=== PATIENT | female | born 1965 | race Hispanic/Latino ===

== ENCOUNTER 2019-04-08 14:46 | Observation (INO) | payer OTHER ==
[~2019-04-08] VITALS: Ht 162.6 cm; Wt 70.7 kg
[2019-04-08 15:58] LABS: BASOPHILS % (AUTO) 1.4 % (0.0-5.0); EOSINOPHILS % (AUTO) 1.9 % (0.0-8.0); HEMATOCRIT 43.1 % (36-48); MEAN CORPUSCULAR HEMOGLOBIN 30.4 pg (27.0-33.0); MEAN CORPUSCULAR HGB CONC 33.7 g/dL (32.0-36.0); MEAN CORPUSCULAR VOLUME 90.1 fL (79-99); NEUTROPHILS % (AUTO) 60.7 % (40.0-77.0); NUCLEATED RED BLOOD CELLS 0.1 % (0.0-0.19); PLATELET COUNT (AUTO) 316 K/uL (130-400); RED BLOOD CELL COUNT(AUTO) 4.79 MIL/uL (4.00-5.50); RED CELL DISTRIBUTION WIDTH 13.3 % (11.0-15.5); WHITE BLOOD COUNT (AUTO) 7.8 K/uL (4.8-10.8)
[2019-04-08 16:09] LABS: CREATININE 0.8 mg/dL (0.5-1.5); POTASSIUM 3.7 mmol/L (3.5-5.1)
[2019-04-08 16:24] LABS: ALBUMIN 4.2 g/dL (3.5-5.0); BILIRUBIN,TOTAL 0.3 mg/dL (0.2-1.0); TOTAL PROTEIN, SERUM 8.7 g/dL (6.0-8.3)
[2019-04-08 17:54] LABS: APPEARANCE,URINE Clear (CLEAR); BILIRUBIN,URINE Negative (NEGATIVE); COLOR,URINE Yellow (YELLOW); GLUCOSE, URINE (UA) Negative (NEGATIVE); KETONES,URINE Negative (NEGATIVE); LEUKOCYTE ESTERASE ,URINE Moderate (NEGATIVE); NITRATE,URINE Negative (NEGATIVE); OCCULT BLOOD,URINE Small (NEGATIVE); PROTEIN,URINE Negative (NEGATIVE); UROBILINOGEN,URINE 0.2 mg/dL (0.2-1.0)
[2019-04-08 17:59] LABS: AMPHET/METH SCREEN,URINE NEGATIVE (NEGATIVE); BARBITURATE SCREEN, URINE NEGATIVE (NEGATIVE); BENZODIAZEPINES SCREEN,URINE NEGATIVE (NEGATIVE); CANNABINOID SCREEN,URINE NEGATIVE (NEGATIVE); COCAINE SCREEN,URINE NEGATIVE (NEGATIVE); OPIATE SCREEN,URINE NEGATIVE (NEGATIVE); PHENCYCLIDINE SCREEN,URINE NEGATIVE (NEGATIVE)
[2019-04-08 18:09] LABS: INR 0.9 (0.85-1.15); PARTIAL THROMBOPLASTIN TIME 26.4 SEC (26.3-35.5); PROTHROMBIN TIME 9.4 SEC (9.6-11.6)
[2019-04-08 18:50] LABS: BACTERIA,URINE Few /HPF (None Seen); RBC,URINE 0-1 /HPF (0-1)
[2019-04-08] MEDS: SODIUM CHLORIDE 0.9% 1000ML 1,000 ML IV SCH (21:25)
[2019-04-08] MEDS ORDERED: LORAZEPAM 2 MG/ML 1 ML VIAL IM ONE (21:30)
[2019-04-08] MEDS ORDERED: IOHEXOL-350 75 ML VIAL IV ONE (21:56)
[2019-04-08 23:28] VITALS: BP 123/78
--- NOTE | 2019-04-08 23:50 | NUR ---
ADMIT PT ADMITTED TO ROOM 319,AAOX3. CLAIMS OF THROBBING PAIN ON LEFT SIDE OF HEAD, MOSTLY THE LEFT EYE AREA. ADMISSION CARE DONE. ADMISSION DATA BASE COMPLETED. CONTINUED IVF FROM ER OF NS REGULATED AT 100CC/HR. PLACED PT NPO ORDERED, PT INSTRUCTED. ORIENTED TO ROOM AND UNIT. TELE MONITOR REPORTS NSR WITH HR=80'S. IN FOR MORE CARE AND MANAGEMENT. INFORMED PT THAT HOSPITALIST WILL BE CALLED FOR PAIN MED. Addendum: 04/09/19 at 0058 by RACHAEL BAUMAN RN RN Amended: Links added.
--- NOTE | 2019-04-09 00:14 | NUR ---
CRIMINAL COURT JUDGE CALLED CRIMINAL COURT JUDGE BALLISTIC EXPERT FOR HOSPITALISTMERVAT. CLARIFIED ATIVAN ORDER. REFERRED PAIN OF PT. NEW MED ORDER FOR TYLENOL RECEIVED. WILL MEDICATE PT.
[2019-04-09] MEDS ORDERED: ACETAMINOPHEN 325 MG TAB PO PRN (00:15)
[2019-04-09] MEDS ORDERED: ACETAMINOPHEN 325 MG TAB ONE (00:16)
[2019-04-09] MEDS: CEFTRIAXONE SODIUM 1 GM IVP SCH (00:19)
--- NOTE | 2019-04-09 02:00 | NUR ---
ROUNDS PT RESTING WELL, FAIRLY ASLEEP. NO DISTRESS NOTED. KEPT UNDISTURBED FOR NOW. CALL LIGHT WITHIN REACH. WILL MONITOR PT.
[2019-04-09 04:49] VITALS: BP 118/65
--- NOTE | 2019-04-09 05:59 | NUR ---
CONSENT PT ALREADY AWAKE, CONVERSANT AND COHERENT. PT VERBALIZES THAT SHE DOES NOT HAVE ANY NUMBNESS NOR PAINS AT THIS TIME. PCP ASKED IF PT WANTS TO SHOWER AND PT AGREED. SALINE LOCKED PT FOR NOW. PCP IN TO ASSIST PT. FOR MORE CARE.
[2019-04-09 06:04] LABS: HEMATOCRIT 37.7 % (36-48); MEAN CORPUSCULAR HEMOGLOBIN 30.9 pg (27.0-33.0); MEAN CORPUSCULAR HGB CONC 33.8 g/dL (32.0-36.0); MEAN CORPUSCULAR VOLUME 91.5 fL (79-99); NUCLEATED RED BLOOD CELLS 0.1 % (0.0-0.19); PLATELET COUNT (AUTO) 261 K/uL (130-400); RED BLOOD CELL COUNT(AUTO) 4.12 MIL/uL (4.00-5.50); RED CELL DISTRIBUTION WIDTH 13.3 % (11.0-15.5); WHITE BLOOD COUNT (AUTO) 6.6 K/uL (4.8-10.8)
[2019-04-09 06:09] LABS: HEMOGLOBIN A1C 5.4 % (4.0-6.0)
[2019-04-09 06:20] LABS: ALBUMIN 3.3 g/dL (3.5-5.0); BILIRUBIN,DIRECT 0.1 mg/dL (0.0-0.3); BILIRUBIN,TOTAL 0.5 mg/dL (0.2-1.0); CREATININE 0.8 mg/dL (0.5-1.5); POTASSIUM 4.4 mmol/L (3.5-5.1); TOTAL PROTEIN, SERUM 6.9 g/dL (6.0-8.3)
[2019-04-09] MEDS: SODIUM CHLORIDE 0.9% 1000ML 1,000 ML IV SCH (06:35)
[2019-04-09 07:30] VITALS: BP 107/67
[2019-04-09] MEDS: ASPIRIN 325 MG TABLET PO SCH (09:17)
[2019-04-09] MEDS: ENOXAPARIN SODIUM 30 MG/0.3 ML SQ SCH (09:19)
[2019-04-09] MEDS: FAMOTIDINE/PF 20 MG/2 ML VIAL IV SCH ×2 (09:24→20:26)
[2019-04-09] MEDS ORDERED: GADODIAMIDE 10 MMOL/20 ML VIAL IV ONE (09:37)
[2019-04-09] MEDS ORDERED: LORAZEPAM 2 MG/ML 1 ML VIAL IM SCH (09:45)
[2019-04-09 11:00] VITALS: BP 114/75
[2019-04-09] MEDS ORDERED: CEPH500B PO (11:46)
--- NOTE | 2019-04-09 13:07 | NUR ---
note SPOKE TO DR BECKETT REGARDING ORDERS FOR 2D ECHO STUDY WITH BUBBLE STUDY. PROCEDURE WAS CANCELLED BY RADAR ENGINEER BECAUSE STROKE HAD BEEN RULED OUT AND THAT WAS THE REASON FOR THE STUDY BUT AFTER CONFIRMING WITH DR BECKETT HE WANTS THE STUDY PERFORMED BEFORE THE PATIENT GOE HOME FOR SHE HAS BEEN DISCHARGED PER PRIMARY DOCTOR BUT WE ARE PENDING NEUROLOGY OKAY. WILL RE ENTER ORDER.
[2019-04-09] MEDS: ONDANSETRON HCL 4 MG/2 ML VIAL IV PRN ×2 (13:24→20:26)
--- NOTE | 2019-04-09 14:01 | NUR ---
DYSPHAGIA EVAL COMPLETE. -S/S OF ASPIRATION. RECOMMEND REGULAR, THIN LIQUID DIET; PILLS WHOLE WITH LIQUIDS. PATIENT INFORMATION: Pt IS A 54 Y.O. FEMALE REFERRED FOR A BEDSIDE DYSPHAGIA EVALUATION SECONDARY TO POSSIBLE TIA. Pt AAOX3 AND SERVED THE PRIMARY INFORMANT FOR MEDICAL AND SOCIAL HISTORY. Pt CURRENTLY ADMITTED TO R/O TIA, FACIAL PARESTHESIA. PT HAS A PAST MEDICAL HISTORY SIGNIFICANT FOR ARTHRITIS, HYPERLIPIDEMIA, CVA (4 YEARS AGO), X3. EVALUATION: SWALLOW FUNCTION AND EFFICIENCY WITHIN FUNCTIONAL LIMITS. ORAL MOTOR STRENGTH, COORDINATION, AND ROM WITHIN FUNCTIONAL LIMITS. LARYNGEAL ELEVATION/EXCURSION STRONG WITH TIMELY PHARYNGEAL RESPONSE. NO OVERT SIGNS OR SYMPTOMS OF ASPIRATION PRESENT AT BEDSIDE. VOCAL QUALITY CLEAR WITH NO THROAT CLEAR OR COUGH RESPONSE PRESENT. RECOMMENDATIONS: 1. REGULAR TEXTURE, THIN LIQUID DIET; PILLS WHOLE WITH LIQUIDS. 2. COMPENSATORY STRATEGIES (PROPHYLAXIS): *SEATED AT 90 DEGREE ANGLE G-CODES SWALLOWING: [id number] Addendum: 04/09/19 at 1404 by FERNANDA [facility] Amended: Links added.
[2019-04-09 16:00] VITALS: BP 121/73
--- NOTE | 2019-04-09 16:13 | NUR ---
LINDSAY Met with patient alone, aaox3, nauseated; lives w spouse darrius alonzo who will provide transport home; pt is indp of adls but states has a shoulder injury and her daughter helps her with her hair. no dme/hh/provider; goes to [facility], [facility] is home Addendum: 04/10/19 at 0825 by JESS HILL RN CM Amended: Links added.
[2019-04-09 19:00] VITALS: BP 120/70
[2019-04-09] MEDS ORDERED: ATORVASTATIN CALCIUM 20 MG TABLET PO SCH (21:00)
--- NOTE | 2019-04-09 21:00 | NUR ---
EMESIS EPISODE PATIENT LEANING OVER BED HAVING AN EMESIS EPISODE. UNDIGESTED FOOD PARTICLES NOTED. PATIENT REPORTS UNABLE TO GET UP TO GO TO RESTROOM IN TIME. MODERATE AMOUNT OF EMESIS ON THE FLOOR, UNABLE TO DOCUMENT PRECISE AMOUNT. REINFORCED SAFETY PRECAUTIONS. BED IN LOWEST POSITION, CALL LIGHT WITHIN REACH.
--- NOTE | 2019-04-09 22:53 | NUR ---
PHYSICIAN PAGED PATIENT REPORTS FEELING NAUSEOUS, DIZZY AND DOES NOT FEEL SAFE GOING HOME. MERVAT CHEEMA NP ORDERED PHENERGAN 25 MG IM ONCE AND TO HOLD DISCHARGE UNTIL THE AM.
[2019-04-09] MEDS ORDERED: PROMETHAZINE HCL 25 MG/ML 1ML AMPULE IM SCH (23:00)
[2019-04-10] VITALS: BP 119/73
[2019-04-10] MEDS: CEFTRIAXONE SODIUM 1 GM IVP SCH (00:12)
--- NOTE | 2019-04-10 00:12 | NUR ---
NURSING ROUNDS PATIENT REPORTS HAVING NAUSEA. ADMINISTERED IM ANTIEMETIC ORDERED. WILL REASSESS THE PATIENT. NO PAIN AT THIS TIME. REINFORCED SAFETY INSTRUCTIONS, VERBALIZES UNDERSTANDING. BED IN LOWEST POSITION, CALL LIGHT WITHIN REACH, BED ALARM ON, DOOR LEFT OPEN.
[2019-04-10 04:00] VITALS: BP 118/65
[2019-04-10 07:30] VITALS: BP 104/61
[2019-04-10] MEDS: ENOXAPARIN SODIUM 30 MG/0.3 ML SQ SCH (09:00)
[2019-04-10] MEDS ORDERED: CLOPIDOGREL BISULFATE 75 MG TAB PO SCH (09:00)
[2019-04-10] MEDS ORDERED: CLOP75TA14 PO (09:28)
[2019-04-10] MEDS: ASPIRIN 325 MG TABLET PO SCH (10:04)
[2019-04-10] MEDS: FAMOTIDINE/PF 20 MG/2 ML VIAL IV SCH (10:05)
[2019-04-10 11:00] VITALS: BP 106/73
--- NOTE | 2019-04-10 12:40 | NUR ---
DISCHARGE INSTRUCTIONS READ TO PT INSTRUCTIONS, TEACH BACK DONE, AND PT SIGNED UNDERSTANDING OF INSTRUCTIONS AND PRESCRIPTION
--- NOTE | 2019-04-10 13:00 | NUR ---
DISCHARGE PT STABLE, NO PAIN, NO COMPLAINTS, AAO X3; PT LEFT UNIT, VIA WHEELCHAIR, ACCOMPANIED BY [facility]AN[facility] AND FAMILY [facility]ERS CARRYING ALL PERSONAL BELONGINGS, INSTRUCTIONS, AND PRESCRIPTION; PT LEFT FACILITY IN PERSONAL VEHICLE
== END 2019-04-10 13:00 | disposition home or self-care (01) ==
LOC: EDH 14:46 → EDHIP 21:25 → 3CH 23:07
PROVIDERS: ADMIT Internal Medicine; ATTEND Internal Medicine
DX: R20.2 Paresthesia of skin (principal); E78.5 Hyperlipidemia, unspecified; R42 Dizziness and giddiness; G45.9 Transient cerebral ischemic attack, unspecified; I10 Essential (primary) hypertension; N39.0 Urinary tract infection, site not specified; R29.701 NIHSS score 1; Z86.73 Personal history of transient ischemic attack (TIA), and cerebral infarction without residual deficits; Z83.3 Family history of diabetes mellitus; Z82.49 Family history of ischemic heart disease and other diseases of the circulatory system; Z79.899 Other long term (current) drug therapy
CPT/HCPCS: 36415 ×2; 70450; 70496; 70498; 70553; 72125; 80048; 80053; 80061; 80076; 80305; 81001; 82550; 83036; 84443; 84484; 85025; 85027; 85610; 85730; 92610; 93005; 93306; 96361; 96372 ×2; 96374; 96375; 96376 ×2; 97116 ×2; 97161; 99291; A4218 ×2; A9579; G0378 ×37; G8978; G8979; G8980; G8981; G8982; G8983; J0696 ×2; J1650; J2060; J2405 ×2; J3490 ×3; J7030; Q9967

== ENCOUNTER → 2019-05-14 | Outpatient (CLI) | payer OTHER ==
[~2019-05-14] MED LIST: CEPH500B PO; CLOP75TA14 PO
== END | disposition home or self-care (01) ==
LOC: OIH 14:43
PROVIDERS: ATTEND Internal Medicine
DX: M19.012 Primary osteoarthritis, left shoulder (principal); M75.02 Adhesive capsulitis of left shoulder
CPT/HCPCS: 73030

== ENCOUNTER 2019-05-25 09:42 | Emergency (ER) | payer OTHER ==
[2019-05-25] MEDS ORDERED: FAMOTIDINE 20MG TAB 20 MG TAB ONE (10:27)
[2019-05-25] MEDS ORDERED: DIPHENHYDRAMINE HCL 25 MG CAPSULE ONE (10:27)
[2019-05-25] MEDS ORDERED: PREDNISONE 20 MG TABLET ONE (10:27)
== END 2019-05-25 11:06 | disposition home or self-care (01) ==
LOC: EDH 09:42
DX: L50.0 Allergic urticaria (principal); E78.5 Hyperlipidemia, unspecified; Z88.2 Allergy status to sulfonamides
CPT/HCPCS: 99284; Q0163

== ENCOUNTER 2021-12-11 15:54 | Emergency (ER) | payer OTHER ==
[~2021-12-11] VITALS: Ht 162.6 cm; Wt 72.6 kg
[2021-12-11 15:55] VITALS: BP 125/68
[2021-12-11] MEDS ORDERED: CEPH500B PO (16:20)
[2021-12-11] MEDS ORDERED: TETANUS/DIPHTHERIA TOXOID [ADULT] 0.5 ML VIAL IM ONE (16:30)
[2021-12-11] MEDS ORDERED: CEPHALEXIN 500 MG CAPSULE PO ONE (16:30)
[2021-12-11] MEDS ORDERED: OCTYL 2-CYANOACRYLATE 1 EACH TP ONE (16:53)
== END 2021-12-11 17:09 | disposition home or self-care (01) ==
LOC: EDH 15:54
DX: S61.210A Laceration without foreign body of right index finger without damage to nail, initial encounter (principal); Z88.2 Allergy status to sulfonamides; Z86.73 Personal history of transient ischemic attack (TIA), and cerebral infarction without residual deficits; X58.XXXA Exposure to other specified factors, initial encounter; Y93.89 Activity, other specified; Y92.89 Other specified places as the place of occurrence of the external cause; Y99.8 Other external cause status
CPT/HCPCS: 12001; 90471; 90714

== ENCOUNTER 2023-06-27 20:55 | Emergency (ER) | payer OTHER ==
[~2023-06-27] VITALS: Ht 162.6 cm; Wt 60.8 kg
[~2023-06-27 20:55] MED LIST changes: +CLOP-31 PO; -CLOP75TA14 PO
[2023-06-27] MEDS ORDERED: DIPH-1242 PO (21:37)
[2023-06-27] MEDS ORDERED: LORA10TA7 PO (21:37)
[2023-06-27 21:52] VITALS: BP 128/76; PULSE 82; RESP 16; O2SAT 100
== END 2023-06-27 22:00 | disposition home or self-care (01) ==
LOC: EDH 20:55
DX: L50.9 Urticaria, unspecified (principal); M19.90 Unspecified osteoarthritis, unspecified site; E78.00 Pure hypercholesterolemia, unspecified; Z86.73 Personal history of transient ischemic attack (TIA), and cerebral infarction without residual deficits; Z88.2 Allergy status to sulfonamides
CPT/HCPCS: 99282

== ENCOUNTER → 2023-09-07 | Emergency (ER) | payer OTHER ==
[~2023-09-07] VITALS: Ht 162.6 cm; Wt 60.8 kg
[~2023-09-07] MED LIST changes: +DIPH-1242 PO; +DIPHENHYDRAMINE HCL 25 MG CAPSULE PO ONE; +FAMOTIDINE 20MG TAB PO ONE; +LORA10TA7 PO; +SOLU-MEDROL 125MG VIAL IM ONE
[2023-09-07 21:59] VITALS: BP 126/78; PULSE 86; RESP 16
== END ==
LOC: EDH 21:49
DX: T78.1XXA Other adverse food reactions, not elsewhere classified, initial encounter (principal); E78.00 Pure hypercholesterolemia, unspecified; M19.90 Unspecified osteoarthritis, unspecified site; Z79.899 Other long term (current) drug therapy; Z98.890 Other specified postprocedural states; Z88.2 Allergy status to sulfonamides; Z86.73 Personal history of transient ischemic attack (TIA), and cerebral infarction without residual deficits; X58.XXXA Exposure to other specified factors, initial encounter
CPT/HCPCS: 99283; 96372; Q0163; J2930

== ENCOUNTER 2023-11-08 12:39 | Emergency (ER) | payer OTHER ==
[~2023-11-08] VITALS: Ht 160 cm; Wt 63.0 kg
[~2023-11-08 12:39] MED LIST changes: -DIPHENHYDRAMINE HCL 25 MG CAPSULE PO ONE; -FAMOTIDINE 20MG TAB PO ONE; -SOLU-MEDROL 125MG VIAL IM ONE
[2023-11-08 15:50] LABS: APPEARANCE,URINE CLEAR (CLEAR); BILIRUBIN,URINE NEGATIVE (NEGATIVE); COLOR,URINE COLORLESS (YELLOW); GLUCOSE, URINE (UA) NEGATIVE (NEGATIVE); KETONES,URINE NEGATIVE (NEGATIVE); LEUKOCYTE ESTERASE ,URINE 75 Leu/uL (NEGATIVE); NITRATE,URINE NEGATIVE (NEGATIVE); OCCULT BLOOD,URINE MODERATE (NEGATIVE); PROTEIN,URINE NEGATIVE (NEGATIVE); UROBILINOGEN,URINE 0.2 mg/dL (0.2-1.0)
[2023-11-08 15:56] LABS: ADD UA MICROSCOPIC YES
[2023-11-08 15:59] LABS: BACTERIA,URINE RARE /HPF (None Seen); MUCUS,URINE RARE LPF (None Seen); SQUAMOUS EPITHELIAL CELL,UR RARE /HPF (0-2)
[2023-11-08] MEDS ORDERED: CEPH500B PO (15:59)
[2023-11-08 16:03] LABS: SARS-CoV-2, RNA, NAAT NEGATIVE SARS CoV-2 (NEGATIVE)
[2023-11-08 16:08] LABS: INFLUENZA TYPE A Negative For Type A (NEGATIVE); INFLUENZA TYPE B Negative For Type B (NEGATIVE)
[2023-11-08 16:28] VITALS: BP 147/78; PULSE 85; RESP 18; O2SAT 98
== END 2023-11-08 16:37 | disposition home or self-care (01) ==
LOC: EDH 12:39
DX: J06.9 Acute upper respiratory infection, unspecified (principal); J02.9 Acute pharyngitis, unspecified; N39.0 Urinary tract infection, site not specified; M19.90 Unspecified osteoarthritis, unspecified site; J45.909 Unspecified asthma, uncomplicated; I10 Essential (primary) hypertension; E78.00 Pure hypercholesterolemia, unspecified; Z86.73 Personal history of transient ischemic attack (TIA), and cerebral infarction without residual deficits; Z88.2 Allergy status to sulfonamides; Z20.822 Contact with and (suspected) exposure to COVID-19
CPT/HCPCS: 99283; 87635; 87088; 87880; 87804 ×2; 81001; C9803